=== PATIENT | male | born 1975 | race Caucasian/White ===

== ENCOUNTER 2019-10-19 19:08 | Emergency (ER) | payer OTHER ==
[2019-10-19 19:21] VITALS: BMI 28.4
[2019-10-19 19:31] VITALS: BP 143/94; PULSE 63; TEMP 98.1
[2019-10-19 20:07] LABS: BASO % 1.5 % (0-2.0); EOS % 2.5 % (0-4.5); HEMOGLOBIN 14.5 GM/dl (11.7-16.9); LYMPH % 41.3 % (8-40); MCHC 33.7 g/dl (32.0-35.9); MEAN PLT VOLUME 7.6 fl (7.5-11.1); MONO % 8.2 % (3.8-10.2); NEUT % 46.5 % (42.8-82.8); PLATELET COUNT 217 K/MM3 (134-434); RBC 4.83 M/mm3 (4.00-5.60); RDW 13.4 % (11.9-15.9); WHITE BLOOD COUNT 5.3 K/mm3 (4.0-10.8)
[2019-10-19 20:22] LABS: ALBUMIN 4.5 g/dl (3.4-5.0); BILIRUBIN,TOTAL 0.9 mg/dl (0.2-1); CALCIUM 9.2 mg/dl (8.5-10); CREATININE 1.3 mg/dl (0.55-1.3); MAGNESIUM 1.9 mg/dL (1.8-2.4); POTASSIUM 3.7 mmol/L (3.5-5.1); TOT PROT 7.3 g/dl (6.4-8.2)
--- NOTE | 2019-10-19 21:23 | PDOC ---
Documentation entered by Caty Cuevas SCRIBE, acting as scribe for Tae Arnold MD. Tae Arnold MD: This documentation has been prepared by the stefanibe, Caty Cuevas SCRIBE, under my direction and personally reviewed by me in its entirety. I confirm that the documentation accurately reflects all work, treatment, procedures, and medical decision making performed by me. History of Present Illness - General Chief Complaint: Chest Pain Stated Complaint: CHEST PAIN History Source: Patient Exam Limitations: No Limitations - History of Present Illness Initial Comments: 10/19/19 19:46 The patient is a 44-year-old male who presents to the emergency department with chest pain. The patient reports he had an acute onset of 2 very brief episodes of sharp/crampy chest pain after walking up a small hill, associated with feeling out of breath and dizziness. The patient reports the first episode came lasted for about 1-2 seconds, went away, then another episode presented. The patient reports after the episodes he felt a residual pain under the left breast, which also self resolved. The patient reports hes been having episodes of fatigue and rapid heart beating for a while, states even after cutting out caffeine the episodes persisted. The patient reports after the episodes today he did feel fatigued and his heart beating rapidly, states he felt his pulse and it felt irregular. The patient reports following up with his slate cutter about 6 months ago, had an unremarkable echo and physical exam. Denies personal history of cardiac illness, HTN, HLD, or DM. PAST MEDICAL HISTORY: Exercise-induced asthma (on Symbicort) PAST SURGICAL HISTORY: no significant history FAMILY HISTORY: Father: Aortic valve replacement and bicuspid valve. Moms side: cardiac disease. SOCIAL HISTORY: Pt lives with family and is employed. MEDICATIONS: reviewed ALLERGIES: As per nursing notes Business Development Manager: Dr. Youngblood. Review of system: General: +fatigue. No fevers or chills, no weakness, no weight loss HEENT: No change in vision. No sore throat. No ear pain CardioVascular: +brief episode of chest pain. +rapid heart beating. +feeling out of breath. Respiratory: No cough, or wheezing. Gastrointestinal: no nausea, vomiting, diarrhea or constipation, No rectal bleeding Genitourinary: No dysuria, hematuria, or frequency Musculoskeletal: No joint or muscle pain or swelling Neurologic: +dizziness. No headache, vertigo, or loss of consciousness Psychiatric: nor depression Skin: No rashes or easy bruising Endocrine: no increased thirst or abnormal weight change Allergic: no skin or latex allergy All other systems reviewed and normal Physical exam: General: Well-nourished well-developed individual, no acute distress HEENT: Throat: Normal, tonsils normal, no erythema or exudate Neck: Supple, no meningeal signs, no lymphadenopathy Eyes :Pupils equal reactive and round, extraocular motion intact Chest: Nontender to palpation Cardiac: S1-S2 normal, regular rate and rhythm, no murmurs rubs or gallops Respiratory: Lungs clear to auscultation bilateral Abdomen: Soft, nondistended, normal bowel sounds, nontender to palpation diffusely Extremities: Warm, dry, no cyanosis, clubbing, or edema Skin: No rashes Neuro: Alert and oriented x3, nonfocal exam, grossly intact, normal gait Psych: Normal mood and affect 10/19/19 21:17 Assessment and plan: This is a 44-year-old male who comes in complaining of some dizziness shortness of breath and palpitations associated with 2 brief episodes of chest pain lasting a few seconds and some residual discomfort in the left side of his chest. Patient had an EKG that showed sinus bradycardia otherwise normal no acute ST-T wave changes Patient had a initial troponin that was 0.03 Patient did not want to wait for a second troponin which I recommended so patient left AGAINST MEDICAL ADVICE patient has a slate cutter he will see on Tuesday. Patient understood by leaving AGAINST MEDICAL ADVICE he was assuming responsibility for any adverse outcome including but not limited to a heart attack permanent disability or Past History - Medical History Allergies/Adverse Reactions: Allergies Allergy/AdvReac Type Severity Reaction Status Date / Time No Known Allergies Allergy Unverified 10/19/19 19:10 Home Medications: Ambulatory Orders NK [No Known Home Medication] 10/19/19 *Physical Exam - Vital Signs Last Vital Signs Temp Pulse Resp BP Pulse Ox 98.1 F 63 16 143/94 99 10/19/19 19:13 10/19/19 19:13 10/19/19 19:13 10/19/19 19:13 10/19/19 19:13 ED Treatment Course - LABORATORY CBC & Chemistry Diagram: 10/19/19 19:40 10/19/19 19:46 - ADDITIONAL ORDERS Additional order review: Laboratory Results 10/19/19 10/19/19 19:46 19:46 Sodium 139 Potassium 3.7 Chloride 105 Carbon Dioxide 26 Anion Gap 8 BUN 15.0 Creatinine 1.3 Est GFR (CKD-EPI)AfAm 78.00 Est GFR (CKD-EPI)NonAf 67.30 Random Glucose 85 Calcium 9.2 Magnesium 1.9 Total Bilirubin 0.9 AST 24 ALT 23 Alkaline Phosphatase 29 L Creatine Kinase 282 Creatine Kinase Index 1.1 CK-MB (CK-2) 3.2 Troponin I 0.03 Total Protein 7.3 Albumin 4.5 10/19/19 19:40 RBC 4.83 MCV 89.0 MCHC 33.7 RDW 13.4 MPV 7.6 Neutrophils % 46.5 Lymphocytes % 41.3 H Monocytes % 8.2 Eosinophils % 2.5 Basophils % 1.5 Discharge - Discharge Information Problems reviewed: Yes Clinical Impression/Diagnosis: Chest pain Qualifiers: Chest pain type: unspecified Qualified Code(s): R07.9 - Chest pain, unspecified Condition: Stable Disposition: AGAINST MEDICAL ADVICE - Admission No - Follow up/Referral - Patient Discharge Instructions Patient Printed Discharge Instructions: DI for Chest Pain Additional Instructions: It is important that you follow-up with your slate cutter on Tuesday. You are leaving AGAINST MEDICAL ADVICE by leaving AGAINST MEDICAL ADVICE you accept responsibility for any adverse outcome including but not limited to a heart attack, permanent disability or Return to the emergency department immediately with ANY new, persistent or wor sening symptoms. Continue any medications as previously prescribed by your physician. You should follow up with your primary doctor as soon as possible regarding today's emergency department visit. . Please make sure your doctor reviews the results of your emergency evaluation. Thank you for coming to the Emergency Department today for your care. It was a pleasure to see you today. Please note that your evaluation is INCOMPLETE until you follow-up with your doctor. - Post Discharge Activity
--- NOTE | 2019-10-20 13:25 | EKG ---
Test Reason : Blood Pressure : / mmHG Vent. Rate : 058 BPM Atrial Rate : 058 BPM P-R Int : 194 ms QRS Dur : 094 ms QT Int : 426 ms P-R-T Axes : 030 027 041 degrees QTc Int : 418 ms SINUS BRADYCARDIA OTHERWISE NORMAL ECG NO PREVIOUS ECGS AVAILABLE Confirmed by Tracee Sethi ([id number]) on 10/20/2019 1:25:35 PM Referred By: DR SANDERS Confirmed By:Tracee Sethi
== END 2019-10-19 21:26 | disposition left against medical advice (07) ==
LOC: FER 19:08
DX: R07.9 Chest pain, unspecified (principal)
CPT/HCPCS: 36415; 80053; 82550; 82553; 83735; 84484; 85025; 93005; 99284-25